=== PATIENT | male | born 1980 | race Caucasian/White ===

== ENCOUNTER 2016-07-17 17:37 | Emergency (ER) | payer OTHER ==
[~2016-07-17] VITALS: Ht 188 cm; Wt 68.4 kg
[2016-07-17 18:35] VITALS: BP 118/82
== END 2016-07-17 18:55 | disposition home or self-care (01) ==
LOC: ED 18:49
DX: R07.2 Precordial pain (principal)
CPT/HCPCS: 36415; 84484; 93005; 99285

== ENCOUNTER 2018-04-14 20:54 | Emergency (ER) | payer OTHER ==
[~2018-04-14] VITALS: Ht 182.9 cm; Wt 76.0 kg
[2018-04-14 20:56] VITALS: BP 126/85
[2018-04-14] MEDS ORDERED: LIDOCAINE-MPF 1%, 5ML ONE (21:13)
[2018-04-14] MEDS ORDERED: LIDOCAINE-MPF 1%, 5ML INFIL ONE (21:30)
[2018-04-14] MEDS ORDERED: DIPH,PERTUSS(ACELL),TET VAC/PF 0.5 ML IM-VACC ONE ×2 (21:30→21:41)
[2018-04-14] MEDS ORDERED: BACITRACIN ZINC OINT 500U/GM, 0.9 GM ONE (21:48)
--- NOTE | 2018-04-14 21:55 | NUR ---
WOUNDS DRESSED BY RN. DC EDUCATION PROVIDED, PT DEMONSTRATES UNDERSTANDING. PT AMBULATED STEADILY TO DC WITH RN AND SO. SO TO TRANSPORT PT HOME.
== END 2018-04-14 21:57 | disposition home or self-care (01) ==
LOC: ED 21:20
DX: S61.012A Laceration without foreign body of left thumb without damage to nail, initial encounter (principal); W26.0XXA Contact with knife, initial encounter; Y93.89 Activity, other specified; Y92.009 Unspecified place in unspecified non-institutional (private) residence as the place of occurrence of the external cause; Y99.8 Other external cause status
CPT/HCPCS: 12001; 90471; 90715

== ENCOUNTER 2018-05-15 20:53 | Emergency (ER) | payer OTHER ==
[~2018-05-15] VITALS: Ht 188 cm; Wt 77.9 kg
[2018-05-15 20:54] VITALS: BP 130/80
== END 2018-05-15 21:36 | disposition home or self-care (01) ==
LOC: ED 21:28
DX: B02.33 Zoster keratitis (principal)
CPT/HCPCS: 99283